=== PATIENT | female | born 1990 | race Two or more races ===

== ENCOUNTER 2018-10-03 17:36 | Emergency (ER) | payer BC ==
--- NOTE | 2018-10-03 17:55 | ER Document Report ---
ED General - General Chief Complaint: Vag Bleeding, +preg <12wks Stated Complaint: ABDOMINAL PAIN Primary Care Provider: BENNETT VARGAS MD [Primary Care Provider] - Follow up as needed GINI POTTER MD [[facility]] - 10/05/18 9:30 am Notes: Healthy 28-year-old G1, P0 female presents to the emergency department with chief complaint of vaginal bleeding. Patient states she was visiting family is very when she went to the bathroom and started having some lower abdominal cramping and vaginal bleeding. She noticed a little bit of blood in the toilet and then some blood when she wiped. She states the cramps were comparable to menstrual cramps and they are intermittent. Patient does not know if she is currently bleeding at this time as she came directly over. Patient denies the abdominal pain is unilateral in nature and says she will intermittently feel pain on either side of her lower abdomen. No fevers or chills, no urinary symptoms, no abnormal vaginal discharge, no nausea/vomiting/diarrhea/constipation. TRAVEL OUTSIDE OF THE [place] IN LAST 30 DAYS: No - Related Data Allergies/Adverse Reactions: No Known Allergies Allergy (Unverified 10/03/18 17:55) Past Medical History - Social History Smoking Status: Never Smoker Family History: None Review of Systems - Review of Systems Constitutional: See HPI EENT: No symptoms reported Cardiovascular: No symptoms reported Respiratory: No symptoms reported Gastrointestinal: See HPI Genitourinary: See HPI Female Genitourinary: See HPI Musculoskeletal: No symptoms reported Skin: No symptoms reported Hematologic/Lymphatic: No symptoms reported Neurological/Psychological: No symptoms reported Physical Exam - Vital signs Vitals: Temp Pulse Resp BP Pulse Ox 98.5 F 88 21 H 124/70 100 10/03/18 17:40 10/03/18 17:40 10/03/18 17:40 10/03/18 17:40 10/03/18 17:40 - Notes Notes: PHYSICAL EXAMINATION: Reviewed vital signs and charting by RN GENERAL: Alert, interacts well. No acute distress. HEAD: Normocephalic, atraumatic. EYES: Pupils equal and round. Extraocular movements intact. ENT: Oral mucosa moist, tongue midline. NECK: Full range of motion. Trachea midline. LUNGS: Clear to auscultation bilaterally, no wheezes, rales, or rhonchi. No respiratory distress. HEART: Regular rate and rhythm. No murmur ABDOMEN: soft, mild lower abdominal tenderness to palpation bilateral adnexal areas. No distention. Bowel sounds present EXTREMITIES: Moves all 4 extremities spontaneously. No edema, No cyanosis. PSYCH: Normal affect, normal mood. SKIN: Warm, dry, normal turgor. No rashes or lesions noted. Course - Re-evaluation Re-evalutation: 10/03/18 17:54 Overall well-appearing. Plan is to get blood work, serum hCG, transvaginal ultrasound. 10/03/18 17:54 10/03/18 19:07 Transvaginal US 10/03/18 17:51 IMPRESSION: Single intrauterine gestation at sonographic gestational age of 6 weeks, 6 days. SHASHANK 05/23/2019. heart rate 122 BPM. Trimester of : First trimester - 0 to 13 weeks. 10/03/18 19:58 Beta-hCG 39,000+. There was a delay because it had to get diluted for lab to result. Transvaginal ultrasound above. Patient is stable for discharge at this time. - Vital Signs Vital signs: Temp Pulse Resp BP Pulse Ox 98.5 F 88 21 H 124/70 100 10/03/18 17:40 10/03/18 17:40 10/03/18 17:40 10/03/18 17:40 10/03/18 17:40 - Laboratory Result Diagrams: 10/03/18 18:17 10/03/18 18:17 Laboratory results interpreted by me: 10/03/18 10/03/18 10/03/18 18:00 18:17 18:17 WBC 12.2 H Seg Neutrophils % 78.9 H Absolute Neutrophils 9.7 H Beta HCG, Quant 53210.00 H Urine Blood LARGE H Urine Urobilinogen 2.0 H Ur Leukocyte Esterase TRACE H Discharge - Discharge Clinical Impression: Vaginal bleeding affecting early Condition: Good Disposition: HOME, SELF-CARE Additional Instructions: Your ultrasound today shows a living intrauterine . Please follow closely with your primary care [facility] [employer]. Please return if you develop severe abdominal pain, bleeding that goes through more than 2 pads for more than 2 hours, pass out, or have any other symptoms that are concerning to you. Please follow-up closely with your OBGYN regarding todays visit. Referrals: BENNETT VARGAS MD [Primary Care Provider] - Follow up as needed GINI POTTER MD [[facility]] - 10/05/18 9:30 am
--- NOTE | 2018-10-03 18:34 | RADIOLOGY REPORT (SQ) ---
EXAM DESCRIPTION: U/S OB TRANSVAG W/DOPPLER COMPLETED DATE/TIME: 10/03/2018 6:16 pm REASON FOR STUDY: + vaginal bleeding COMPARISON: None. TECHNIQUE: Transvaginal static and realtime grayscale images acquired of the pelvis. Additional sushila cted spectral and color Doppler images recorded. All images stored on PACs. bHCG: Pending. CLINICAL DATES: 6 weeks, 2 days LIMITATIONS: None. FINDINGS: FETUS: Single Living intrauterine . ULTRASOUND EGA: 6 weeks, 6 days ULTRASOUND SHASHANK: 05/23/2019 CRL: 0.8 cm FHR: 122 beats per minute. UTERUS: No masses. No anomalies. CERVICAL LENGTH: 3.2 cm Closed. RIGHT ADNEXA: Normal ovary with normal vascular flow. Probable corpus luteum. No adnexal free fluid. No adnexal masses. LEFT ADNEXA: Normal ovary with normal vascular flow. Multiple small follicles. No adnexal free fluid. No adnexal masses. FREE FLUID: None. OTHER: No other significant finding. IMPRESSION: Single intrauterine gestation at sonographic gestational age of 6 weeks, 6 days. SHASHANK . heart rate 122 BPM. Trimester of : First trimester - 0 to 13 weeks. TECHNICAL DOCUMENTATION: JOB ID: [id number] [employer]- All Rights Reserved rev Reading location - IP/workstation name: [email or web address]
[2018-10-03 18:37] LABS: APPEARANCE,URINE CLOUDY; BILIRUBIN,URINE NEGATIVE (NEGATIVE); COLOR,URINE YELLOW; GLUCOSE, URINE NEGATIVE (NEGATIVE); KETONES,URINE NEGATIVE (NEGATIVE); LEUKOCYTE ESTERASE,URINE TRACE (NEGATIVE); NITRITE,URINE NEGATIVE (NEGATIVE); PROTEIN,URINE NEGATIVE (NEGATIVE)
[2018-10-03 18:47] LABS: ABSOLUTE EOSINOPHILS # (AUTO) 0.1 10^3/uL (0.0-0.6); ABSOLUTE LYMPHOCYTES (AUTO) 1.9 10^3/uL (0.5-4.7); ABSOLUTE MONOCYTES (AUTO) 0.6 10^3/uL (0.1-1.4); ABSOLUTE NEUT (AUTO) 9.7 10^3/uL (1.7-8.2); BASOPHILS % (AUTO) 0.2 % (0-2); EOSINOPHILS % (AUTO) 0.6 % (0-6); HEMATOCRIT 39.9 % (36.0-47.0); HEMOGLOBIN 13.6 g/dL (12.0-15.5); LYMPHOCYTES % (AUTO) 15.1 % (13-45); MEAN CORPUSCULAR HEMOGLOBIN 29.3 pg (27.0-33.4); MEAN CORPUSCULAR VOLUME 86 fl (80-97); MONOCYTES % (AUTO) 5.2 % (3-13); PLATELET COUNT 293 10^3/uL (150-450); RED BLOOD COUNT 4.63 10^6/uL (3.72-5.28); RED CELL DISTRIBUTION WIDTH 13.3 % (11.5-14.0); SEGMENTED NEUTROPHILS % (AUTO) 78.9 % (42-78); TOTAL CELLS COUNTED % (AUTO) 100 %; WHITE BLOOD COUNT 12.2 10^3/uL (4.0-10.5)
[2018-10-03 19:04] LABS: ALBUMIN 3.9 g/dL (3.5-5.0); ALKALINE PHOSPHATASE 71 U/L (38-126); ANION GAP 12 (5-19); ASPARTATE AMINO TRANSFERASE 25 U/L (14-36); BILIRUBIN,DIRECT 0.2 mg/dL (0.0-0.4); BILIRUBIN,TOTAL 0.2 mg/dL (0.2-1.3); BLOOD UREA NITROGEN 12 mg/dL (7-20); CALCIUM 9.2 mg/dL (8.4-10.2); CARBON DIOXIDE 26 mmol/L (22-30); CHLORIDE 100 mmol/L (98-107); GLUCOSE 103 mg/dL (75-110); POTASSIUM 3.8 mmol/L (3.6-5.0); TOTAL PROTEIN 6.7 g/dL (6.3-8.2)
[2018-10-03 20:21] VITALS: BP 111/64
== END 2018-10-03 20:22 | disposition home or self-care (01) ==
LOC: ER 17:36
DX: O46.91 Antepartum hemorrhage, unspecified, first trimester (principal); O26.891 Other specified pregnancy related conditions, first trimester; R10.9 Unspecified abdominal pain; R10.30 Lower abdominal pain, unspecified; Z3A.00 Weeks of gestation of pregnancy not specified
CPT/HCPCS: 36415; 76817; 80053; 81001; 84702; 85025; 93976; 99284

== ENCOUNTER 2019-12-01 15:10 | Emergency (ER) | payer SELFPAY ==
--- NOTE | 2019-12-01 15:22 | ER Document Report ---
ED Medical Screen (RME) - General Chief Complaint: Abdominal Pain Stated Complaint: ABDOMINAL PAIN Primary Care Provider: BENNETT VARGAS MD [Primary Care Provider] - Follow up as needed Notes: Patient is a 29-year-old female who status post appendectomy who presents to the emergency department the chief complaint of abdominal pain recently. States the pain is made worse with any oral intake of anything greasy. Reports associated nausea and vomiting especially after oral intake of food stuffs. Denies any associated diarrhea. States the pain is mostly epigastric to right upper and left upper quadrants. States the pain occasionally radiates through to the right back but rare. Denies any specific palliative factors. No known fevers. No recent travel or known sick contacts. I have treated and performed a rapid initial assessment of this patient. A comprehensive ED assessment and evaluation of the patient, analysis of test results and completion of medical decision making process will be conducted by additional ED providers. PHYSICAL EXAMINATION: GENERAL: Well-appearing, well-nourished and in no acute distress. A&Ox4. Answers questions appropriately. TRAVEL OUTSIDE OF THE [place] IN LAST 30 DAYS: No - Related Data Allergies/Adverse Reactions: No Known Allergies Allergy (Unverified 10/03/18 17:55) Past Medical History Renal/ Medical History: Denies: Hx Peritoneal Dialysis Physical Exam - Vital signs Vitals: Temp Pulse Resp BP Pulse Ox 98.3 F 85 16 135/90 H 100 12/01/19 15:15 12/01/19 15:15 12/01/19 15:15 12/01/19 15:15 12/01/19 15:15 Course - Vital Signs Vital signs: Temp Pulse Resp BP Pulse Ox 98.3 F 85 16 135/90 H 100 12/01/19 15:15 12/01/19 15:15 12/01/19 15:15 12/01/19 15:15 12/01/19 15:15 Doctor's Discharge - Discharge Referrals: BENNETT VARGAS MD [Primary Care Provider] - Follow up as needed
[2019-12-01] MEDS ORDERED: ONDANSETRON HCL INJ/PF 4 MG/2 ML SDV IV ONE (15:23)
[2019-12-01 16:01] LABS: APPEARANCE,URINE CLEAR; BILIRUBIN,URINE NEGATIVE (NEGATIVE); COLOR,URINE YELLOW; GLUCOSE, URINE NEGATIVE (NEGATIVE); KETONES,URINE NEGATIVE (NEGATIVE); PROTEIN,URINE NEGATIVE (NEGATIVE); URINE SPECIFIC GRAVITY 1.018; UROBILINOGEN,URINE NEGATIVE mg/dL (<2.0)
[2019-12-01 16:04] LABS: ABSOLUTE EOSINOPHILS # (AUTO) 0.1 10^3/uL (0.0-0.6); ABSOLUTE LYMPHOCYTES (AUTO) 2.8 10^3/uL (0.5-4.7); ABSOLUTE MONOCYTES (AUTO) 0.6 10^3/uL (0.1-1.4); ABSOLUTE NEUT (AUTO) 8.8 10^3/uL (1.7-8.2); BASOPHILS % (AUTO) 0.3 % (0-2); EOSINOPHILS % (AUTO) 0.9 % (0-6); HEMATOCRIT 40.6 % (36.0-47.0); LYMPHOCYTES % (AUTO) 22.2 % (13-45); MEAN CORPUSCULAR HEMOGLOBIN 30.2 pg (27.0-33.4); MEAN CORPUSCULAR HGB CONC 34.5 g/dL (32.0-36.0); MEAN CORPUSCULAR VOLUME 88 fl (80-97); MONOCYTES % (AUTO) 5.1 % (3-13); PLATELET COUNT 285 10^3/uL (150-450); RED BLOOD COUNT 4.63 10^6/uL (3.72-5.28); RED CELL DISTRIBUTION WIDTH 13.5 % (11.5-14.0); SEGMENTED NEUTROPHILS % (AUTO) 71.5 % (42-78); TOTAL CELLS COUNTED % (AUTO) 100 %; WHITE BLOOD COUNT 12.4 10^3/uL (4.0-10.5)
--- NOTE | 2019-12-01 16:21 | RADIOLOGY REPORT (SQ) ---
EXAM DESCRIPTION: U/S ABDOMEN LIMITED W/O DOP IMAGES COMPLETED DATE/TIME: 12/01/2019 4:10 pm REASON FOR STUDY: abd pain n/v COMPARISON: None. TECHNIQUE: Dynamic and static grayscale images acquired of the abdomen and recorded on PACS. Additio nal selected color Doppler and spectral images recorded. LIMITATIONS: None. FINDINGS: PANCREAS: No masses. Visualized pancreatic duct normal caliber. LIVER: There is a 15 mm echogenic area in the right lobe of the liver suggesting a hemangioma. Ban l echogenicity in the liver generally. LIVER VASCULATURE: Normal directional flow of the main portal vein and hepatic veins. GALLBLADDER: Gallstones are present. There is no wall thickening. ULTRASOUND-DETECTED HARDING'S SIGN: Negative. INTRAHEPATIC DUCTS AND COMMON DUCT: Common bile duct is borderline at 7 mm. There appears to be mild intrahepatic ductal dilatation. AORTA: No aneurysm. RIGHT KIDNEY: Normal size, 9.6 cm. Normal echogenicity. No solid or suspicious masses. No hydronephr osis. No calcifications. PERITONEAL AND RIGHT PLEURAL SPACE: No ascites or effusions. OTHER: No other significant findings. IMPRESSION: Small hepatic hemangioma. Cholelithiasis with no evidence of cholecystitis. Borderline common bile ducts with mild intrahepatic ductal dilatation. Correlate for biliary obstruction. TECHNICAL DOCUMENTATION: JOB ID: [id number] [employer]- All Rights Reserved Reading location - IP/workstation name: [email or web address]
[2019-12-01 16:38] LABS: ALBUMIN 4.2 g/dL (3.5-5.0); ALKALINE PHOSPHATASE 70 U/L (38-126); ANION GAP 8 (5-19); ASPARTATE AMINO TRANSFERASE 39 U/L (14-36); BILIRUBIN,DIRECT 0.3 mg/dL (0.0-0.4); BILIRUBIN,TOTAL 0.4 mg/dL (0.2-1.3); BLOOD UREA NITROGEN 13 mg/dL (7-20); CARBON DIOXIDE 27 mmol/L (22-30); CHLORIDE 102 mmol/L (98-107); GLUCOSE 110 mg/dL (75-110); POTASSIUM 3.9 mmol/L (3.6-5.0); TOTAL PROTEIN 6.9 g/dL (6.3-8.2)
[2019-12-01] MEDS ORDERED: ONDANSETRON 4 MG TAB.RAPDIS PO ONE (17:16)
[2019-12-01] MEDS ORDERED: ONDANSETRON 4 MG TAB.RAPDIS ONE (17:17)
--- NOTE | 2019-12-01 17:17 | ER Document Report ---
ED General - General Chief Complaint: Abdominal Pain Stated Complaint: ABDOMINAL PAIN Time Seen by Provider: 12/01/19 16:55 Primary Care Provider: BENNETT VARGAS MD [Primary Care Provider] - Follow up as needed TRAVEL OUTSIDE OF THE [place] IN LAST 30 DAYS: No - HPI Notes: Chief complaint: Right upper quadrant abdominal pain History of present illness: Previously healthy 29-year-old female 1 AB 1 with prior history of appendectomy comes in with intermittent dull discomfort right upper quadrant of abdomen radiating through to back for the last 1 months. Occasional mild nausea without vomiting. No fever chills. No dysuria. Last menses 2 weeks ago described as normal. No allergies. No chronic medications. No PMD. 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 HENT: Negative for sore throat. Eyes: Negative for visual changes. Cardiovascular: Negative for chest pain. Respiratory: Negative for shortness of breath. Gastrointestinal: As per HPI. Genitourinary: Negative for dysuria. Musculoskeletal: Negative for back pain. Skin: Negative for rash. Neurological: Negative for headaches, weakness or numbness. 10 point ROS negative except as marked above and in HPI. Physical Exam - Vital signs Vitals: Temp Pulse Resp BP Pulse Ox 98.3 F 85 16 135/90 H 100 12/01/19 15:15 12/01/19 15:15 12/01/19 15:15 12/01/19 15:15 12/01/19 15:15 - Notes Notes: GENERAL: female approximately stated age appearing in no acute distress. SKIN: Good turgor no rashes. HEAD: Normocephalic atraumatic. EYES: PERRLA. EOMI. Conjunctivae and sclerae clear. EARS: CANALS AND TMS CLEAR. NOSE: CLEAR. MOUTH: Moist mucosa. Good dentition. No stridor or edema. No drooling. NECK: Supple. No masses or thyromegaly. No adenopathy. Carotids 2+ without bruits. No JVD. BACK: Symmetrical without tenderness. CHEST: Respirations unlabored. Breath sounds clear and symmetrical. HEART: Regular rhythm. No murmur gallop or rub. ABDOMEN: Soft nontender without masses, organomegaly or rebound. Bowel sounds normally active. No bruits. GENITALIA: Deferred. EXTREMITIES: No edema. No calf tenderness. Cap refill less than 1.5 seconds. Dorsalis pedis and posterior tibial pulses 3+ and symmetrical. NEUROLOGICAL: GCS 15. Alert and oriented x3. Normal gait. Fluent speech. Cranial nerves II through XII intact. Sensorimotor and cerebellar normal. Normal tone. PSYCHIATRIC: Appropriate affect. Course - Re-evaluation Re-evalutation: 12/01/19 17:14 Normal urinalysis. test negative. CBC and comprehensive metabolic profile are normal. Gallbladder ultrasound shows multiple small gallstones with no wall thickening and no ductal dilatation. There is no pericholecystic fluid and sonographic Zamora sign is negative. Patient is reassured. Advised Tylenol as needed. I will give her a prescription for Zofran for as needed use. Outpatient surgery referral. Reviewed red flag indications for urgent return to the emergency department. Findings, clinical impression and plan of treatment have been discussed with patient/family. Understanding of current findings and recommendations has been acknowledged by them and there is agreement regarding disposition and follow-up. - Vital Signs Vital signs: Temp Pulse Resp BP Pulse Ox 98.3 F 85 16 135/90 H 100 12/01/19 15:15 12/01/19 15:15 12/01/19 15:15 12/01/19 15:15 12/01/19 15:15 - Laboratory Result Diagrams: 12/01/19 15:34 12/01/19 15:34 Laboratory results interpreted by me: 12/01/19 12/01/19 12/01/19 15:34 15:34 15:34 WBC 12.4 H Absolute Neuts (auto) 8.8 H Sodium 136.8 L AST 39 H Urine Blood SMALL H Discharge - Discharge Clinical Impression: Cholelithiasis Qualifiers: Cholelithiasis location: gallbladder Cholecystitis presence: without cholecystitis Biliary obstruction: without biliary obstruction Qualified Code (s): K80.20 - Calculus of gallbladder without cholecystitis without obstruction Condition: Stable Disposition: HOME, SELF-CARE Additional Instructions: Gallbladder Disease Your evaluation shows evidence of gallbladder disease. The gallbladder is a pouch under the liver which stores bile. Stones, infection, or irritation of the gallbladder cause attacks of pain. Certain foods -- fats in particular -- may provoke attacks. The usual treatment for gallbladder disease is surgical removal of the gal lbladder -- called a cholecystectomy. You will be referred to a physician qualified to advise you on the best treatment for your problem. Hospitalization is not necessary. Take clear liquids only until you are painfree. After that, you should stay on a low-fat diet, with frequent SMALL meals. Call the doctor or return at once if you develop severe pain, repeated vomiting, fever, or jaundice (a yellow color in the skin and whites of the eyes). Tylenol as needed. Zofran as needed for nausea. Follow-up with referral surgeon in the clinic to continue to have symptoms. Prescriptions: Ondansetron [Zofran Odt 4 mg Tablet] 1 - 2 tab PO Q4H PRN #15 tab.rapdis PRN Reason: For Nausea/Vomiting Referrals: BENNETT VARGAS MD [Primary Care Provider] - Follow up as needed CARINA LEZAMA MD [ACTIVE STAFF] - Follow up as needed
[2019-12-01 18:08] VITALS: BP 108/60
== END 2019-12-01 17:30 | disposition home or self-care (01) ==
LOC: ER 15:10
DX: K80.20 Calculus of gallbladder without cholecystitis without obstruction (principal); R10.11 Right upper quadrant pain; R11.0 Nausea
CPT/HCPCS: 99284; 36415; 83690; 85025; 81025; 80053; 81001; 76705; S0119